=== PATIENT | male | born 1980 | race Caucasian/White ===

== ENCOUNTER 2020-04-02 16:25 | Inpatient (IN) ==
[2020-04-02] MEDS ORDERED: SODIUM CHLORIDE 0.9% 1000ML 2,000 ML IV SCH (17:00)
--- NOTE | 2020-04-02 17:13 | XRay Report ---
XR chest 1V portable HISTORY: 39 years-old Male weakness acute weakness COMPARISON: None TECHNIQUE: Portable upright AP view of the chest FINDINGS: Cardiomediastinal and hilar silhouettes are within normal limits. No pneumothorax, pleural effusion, airspace consolidation or overt pulmonary edema. Bones of the chest appear grossly intact. IMPRESSION: No acute process. ACT 112: Negative or not required by law. The above report was generated using voice recognition software. It may contain grammatical, syntax o r spelling errors. Electronically signed by: Kristopher Woodard M.D. 04/02/2020 5:11 PM
[2020-04-02 17:33] LABS: Basophils # (auto) 0.04 K/uL (0-0.2); Basophils % (auto) 0.4 %; Eosinophils # (auto) 0.14 K/uL (0-0.5); Eosinophils % (auto) 1.5 %; Immature Granulocytes # (auto) 0.07 K/uL (0.00-0.02); Immature Granulocytes % (auto) 0.7 %; Lymphocytes # (auto) 2.34 K/uL (1.2-3.4); Lymphocytes % (auto) 24.8 %; Mean Corpuscular Hemoglobin 29.5 pg (25-34); Mean Corpuscular Volume 79.7 fL (80-100); Mean Platelet Volume 10.9 fL (7.4-10.4); Monocytes # (auto) 0.51 K/uL (0.11-0.59); Monocytes % (auto) 5.4 %; Neutrophils # (auto) 6.32 K/uL (1.4-6.5); Neutrophils % (auto) 67.2 %; Platelet Count 223 K/uL (130-400); RDW Coefficient of Variation 12.9 % (11.5-14.5); RDW Standard Deviation 36.9 fL (36.4-46.3); Red Blood Count 5.77 M/uL (4.7-6.1); White Blood Count 9.42 K/uL (4.8-10.8)
[2020-04-02 17:41] LABS: Base Excess VBG 0.7 mEq/L; Oxygen Saturation VBG 92.5 %; pH VBG 7.45 (7.36-7.41)
[2020-04-02 18:22] LABS: Alanine Aminotransferase 79 U/L (12-78); Albumin Globulin Ratio 1.2 (0.9-2); Albumin Level 4.3 gm/dl (3.4-5.0); Alkaline Phosphatase 115 U/L (45-117); Aspartate Aminotransferase 27 U/L (15-37); BUN Creatinine Ratio 14.3 (10-20); Bilirubin,Total 1.6 mg/dl (0.2-1); Blood Urea Nitrogen 19 mg/dl (7-18); Calcium 9.9 mg/dl (8.5-10.1); Carbon Dioxide 22 mmol/L (21-32); Chloride 91 mmol/L (98-107); Creatinine Clr Calc Pharmacy 99.3 ml/min; Est GFR (African American) 77.9; Est GFR (Non-African American) 67.2; Globulin 3.7 gm/dl (2.5-4.0); Glucose 694 mg/dl (70-99); Magnesium 2.1 mg/dl (1.8-2.4); Phosphorus 3.3 mg/dl (2.5-4.9); Potassium 3.6 mmol/L (3.5-5.1); Sodium 127 mmol/L (136-145); Troponin I < 0.015 ng/ml (0-0.045)
[2020-04-02] MEDS ORDERED: POTASSIUM CHLORIDE CRTAB 20 MEQ TABCR PO STA (18:26)
[2020-04-02] MEDS ORDERED: NovoLIN-R INSULIN PER UNIT CHARGE IV STA (18:28)
[2020-04-02] MEDS ORDERED: SODIUM CHLORIDE 0.9% 1000ML 1,000 ML IV SCH (18:30)
[2020-04-02 18:36] LABS: Beta-Hydroxybutyrate 6.78 mg/dl (0.2-2.81)
[2020-04-02 18:51] LABS: Appearance Urine Clear (Clear); Bilirubin Urine Negative (Negative); Blood Urine Negative (Negative); Color Urine Yellow; Glucose Urine UA 3+ (Negative); Ketones Urine Trace (Negative); Leukocyte Esterase Urine Negative (Negative); Nitrite Urine Negative (Negative); Protein Urine Negative (Negative); Specific Gravity Urine 1.035 (1.000-1.030); Urobilinogen Urine Negative (Negative)
--- NOTE | 2020-04-02 19:02 | History & Physical Report ---
Date of Service April 02, 2020 Assessment & Plan (1) Hyperglycemia due to diabetes mellitus: This is a 39 M who has a significant PMH HTN, HLD, elevated LFT, obesity, and smokeless tobacco use who presents to ED 2/2 to overall feeling ill for the past 5 days. In ED found to be hyperglycemic with BSG 694. No evidence of infection. No prior history of T2DM, positive family history in mother. No evidence of overt DKA given normal pH, mild ketones in urine, elevated beta hydroxybutyric acid however trending in that direction if left untreated. After 2 L of IV fluid and 10 units of IV regular insulin BSG 423. Corrected serum sodium 137. Mildly elevated anion gap 14. Admit to PCU Start insulin drip, goal range 150-250 Consult glycemic pharmacist Every hour blood sugar IVF NS 150 cc/h +20 M EQ of KCl bmp now and q8h to monitor for hypokalemia consult extension educator (2) HTN (hypertension): Blood pressure elevated in ED 157/86 Patient overtly agitated given current situation Monitor BP, goal less than 130/80 as outpatient given diabetes Continue lisinopril and hydrochlorothiazide (3) HLD (hyperlipidemia): Currently not on any lipid-lowering medication Last lipid panel 01/2019 Obtain fasting lipid panel in a.m. (4) Obesity: BMI 38.9 encourage weight loss and lifestyle modifications (5) Tobacco abuse: smokeless tobacco encourage cessation (6) Elevated LFTs: Total bili 1.6, ALT 79 (previously elevated in epic 01/2019) No abdominal pain Repeat in a.m. and consider right upper quadrant ultrasound DVT prophylaxis: SCD/teds Disposition: Admit to PCU Follow-up: Current PCP is Dr. Manzano; however patient currently unhappy and will need to establish with another provider in office for close diabetic management Full code History of Present Illness Chief Complaint: Overall feeling ill for the past 5 days. Primary Care Provider: NO PCP This is a 39 M who has a significant PMH HTN, HLD, elevated LFT, obesity, and smokeless tobacco use who presents to ED 2/2 to overall feeling ill for the past 5 days. C/o polyuria, polydipsia, dizziness and dry mouth. 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 Over past few days he was researching symptoms and sounded like diabetes. He asked nurses to check glucose and it was over 600. He was referred to ED. He denies recent illness, f/c/s, syncope, chest pain, sob, cough, URI sx, hemoptysis, n/v/d, abdominal pain, dysuria, melena or hematochezia. His PCP was Dr. Manzano and he is not happy with his care there. Was last seen a few weeks ago and he was concerned about his blood pressure and losing weight. He felt his concerns weren't heard. Today in ED his bsg was 694 but no overt acidosis. Mild ketones in urine and elevation of beta hydroxybutyric acid of 6.78. He received 2 L of IV fluid in ED along with 10 units of IV regular insulin. BSG went from 694- 423. Allergies Allergy/AdvReac Type Severity Reaction Status Date / Time amoxicillin [From Augmentin] Allergy Rash Verified 04/02/20 17:27 clavulanic acid Allergy Rash Verified 04/02/20 17:27 [From Augmentin] Penicillins Allergy diarrhea, Verified 04/02/20 17:26 fever, hives Home Medications Medication Instructions Recorded Confirmed Type acetaminophen [Tylenol Extra 1,000 mg PO Q6H PRN 04/02/20 04/02/20 History Strength] cholecalciferol (vitamin D3) 25 mcg PO DAILY 04/02/20 04/02/20 History [Vitamin D3] hydrochlorothiazide 50 mg PO DAILY 04/02/20 04/02/20 History lisinopril 40 mg PO DAILY 04/02/20 04/02/20 History omega-3 fatty acids [Fish Oil] 1,000 mg PO DAILY 04/02/20 04/02/20 History Past Med/Surg History Medical History (Updated 04/02/20 @ 19:40 by Dulce Soto PA-C) Elevated LFTs HLD (hyperlipidemia) HTN (hypertension) Obesity Vitamin D deficiency Surgical History (Updated 04/02/20 @ 18:58 by Dulce Soto PA-C) History of femur fracture s/p surgical fixation age 8 Family History Mother Diabetes Hypertension Father Hypertension Brother Hypertension Social History (Updated 04/02/20 @ 19:00 by Dulce Soto PA-C) Smoking Status: Current every day smoker Tobacco Type: Smokeless Tobacco (Dip or Chew) Hx Alcohol Use: No Hx Substance Use: No Preferred Language: [place] marital status: Single Current Living Situation: Alone current occupational status: employed 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 Normal insp/exp effort, no accessory muscle use Cardiovascular: RRR, no murmur, no edema Vessels: no JVD or carotid bruit Chest: normal inspection of chest Abdomen: normal bowel sounds, soft, nontender, no hepatosplenomegaly Musculoskeletal: no cyanosis or clubbing, extremities motor strength 5/5 Skin: no rashes, warm and dry normal turgor Neurologic: PERRL, EOMI, accommodation nl, no face palsy, no dysarthria CN's II-XI intact bilaterally and moves all extremities Psychiatric: A+Ox3, euthymic affect : deferred Results & Data Results & Data ([facility]) Vital Signs (Past 12 Hours) Vital Signs Temp Pulse Pulse Resp BP BP Pulse Ox 04/02/20 18:44 87 20 157/86 H 98 04/02/20 18:24 98 04/02/20 17:01 89 20 137/89 98 04/02/20 16:34 36.8 C 111 H 18 156/91 H 96 Diagnostic Findings CXR: IMPRESSION: No acute process. Medications Administered Sodium Chloride (Nss 1000ml) 1,000 mls @ 150 mls/hr IV .Q6H40M BAILEY Stop: 05/02/20 18:29 Last Admin: 04/02/20 18:39 Dose: 150 mls/hr Documented by: [id number] Discontinued Medications Sodium Chloride (Nss 1000ml) 2,000 mls @ 999 mls/hr IV .Q2H1M BAILEY Stop: 04/02/20 19:00 Last Admin: 04/02/20 17:40 Dose: 999 mls/hr Documented by: [id number] Insulin Human Regular (Novolin-R Insulin Per Unit Charge) 10 units IV NOW STA Stop: 04/02/20 18:29 Last Admin: 04/02/20 18:37 Dose: 10 units Documented by: [id number] Cosigned by: [id number] Potassium Chloride (Potassium Chloride Crtab 20 Meq Tabcr) 40 meq PO NOW STA Stop: 04/02/20 18:27 Last Admin: 04/02/20 18:38 Dose: 40 meq Documented by: [id number] ECG Rate (beats per minute): 100 Rhythm: sinus tachycardia Findings: + prolonged QT (467) COVID-19 Results Results COVID-19 Adm Lab Results: RBC 5.77 M/uL (4.7-6.1) 04/02/20 WBC 9.42 K/uL (4.8-10.8) 04/02/20 Hgb 17.0 g/dL (14.0-18.0) 04/02/20 Hct 46.0 % (42-52) 04/02/20 Plt Count 223 K/uL (130-400) 04/02/20 Neutrophils (%) (Auto) 67.2 % 04/02/20 Lymphocytes (%) (Auto) 24.8 % 04/02/20 Monocytes # (Auto) 0.51 K/uL (0.11-0.59) 04/02/20 Eosinophils # (Auto) 0.14 K/uL (0-0.5) 04/02/20 Immature Granulocyte % (Auto) 0.7 % 04/02/20 Neutrophils # (Auto) 6.32 K/uL (1.4-6.5) 04/02/20 Lymphocytes # (Auto) 2.34 K/uL (1.2-3.4) 04/02/20 Monocytes # (Auto) 0.51 K/uL (0.11-0.59) 04/02/20 Eosinophils # (Auto) 0.14 K/uL (0-0.5) 04/02/20 Basophils # (Auto) 0.04 K/uL (0-0.2) 04/02/20 Immature Granulocyte # (Auto) 0.07 K/uL (0.00-0.02) H 04/02/20 Na 127 mmol/L (136-145) L 04/02/20 K 3.6 mmol/L (3.5-5.1) 04/02/20 Cl 91 mmol/L (98-107) L 04/02/20 CO2 22 mmol/L (21-32) 04/02/20 Anion Gap 14.0 (3-11) H 04/02/20 BUN 19 mg/dl (7-18) H 04/02/20 Creatinine 1.34 mg/dl (0.6-1.4) 04/02/20 BUN/Creatinine Ratio 14.3 (10-20) 04/02/20 Glucose Level 694 mg/dl (70-99) H* 04/02/20 Ca 9.9 mg/dl (8.5-10.1) 04/02/20 Phosphorus Level 3.3 mg/dl (2.5-4.9) 04/02/20 Total Bilirubin 1.6 mg/dl (0.2-1) H 04/02/20 AST/SGOT 27 U/L (15-37) 04/02/20 ALT/SGPT 79 U/L (12-78) H 04/02/20 Alkaline Phosphatase 115 U/L (45-117) 04/02/20 Total Protein 8.0 gm/dl (6.4-8.2) 04/02/20 Albumin 4.3 gm/dl (3.4-5.0) 04/02/20 Globulin 3.7 gm/dl (2.5-4.0) 04/02/20 Albumin/Globulin Ratio 1.2 (0.9-2) 04/02/20 Troponin I < 0.015 ng/ml (0-0.045) 04/02/20 SARS-CoV-2, RNA, NAAT NEGATIVE (NEGATIVE) 04/02/20 Chest X-Ray 04/02/20 Code Status & VTE Plan Code Status Full code VTE Prophylaxis Plan VTE Prophylaxis will be ordered: Yes Supervising Physician Co-Signing Physician Notes 39 M who has a significant PMH HTN, HLD, obesity who presents to ED due to overall feeling ill for the past 5 days History detailed above, notable for polyuria, polydipsia, feeling dehydrated and lightheaded. Also chews tobacco Physical exam notable for obesity Labs notable for hyperglycemia, elevated beta hydroxybutyrate, AGAP 14, elevated, K 3.6 -Hyperglycemia -New diagnosis of Diabetes mellitus Does have hyperglycemia, ketonemia but no acidosis. Likely in early stages of developing DKA Will get blood glucose better controlled with insulin drip Got 2L NSS bolus in ER. Hydrate. Continue NSS +KCl Monitor electrolytes Get A1c Provided basic DM education including lifestyle modification DM educator consult Will need supplies and more education prior to discharge Will need set up with a PCP on discharge Continue antihypertensive Other plans as detailed above
[2020-04-02] MEDS ORDERED: DKA GOAL RANGE 150-250 mg/dl ONE (19:23)
[2020-04-02] MEDS ORDERED: PHARMACY GLYCEMIC MGMT CONSULT STA (19:23)
[2020-04-02] MEDS ORDERED: NSS + 20MEQ KCL 20 MEQ/1,000 ML BAG IV SCH (19:30)
[2020-04-02] MEDS ORDERED: INSULIN REGULAR 250 UNITS in SODIUM CHLORIDE 0.9% 247.5 ML IV SCH ×2 (19:30→20:00)
[2020-04-02] MEDS ORDERED: MODERATE STRESS LEVEL ONE (19:42)
[2020-04-02] MEDS ORDERED: PHARMACY GLYCEMIC MGMT CONSULT PRN (19:54)
[2020-04-02 20:24] LABS: BUN Creatinine Ratio 13.6 (10-20); Calcium 8.7 mg/dl (8.5-10.1); Creatinine Clr Calc Pharmacy 115.7 ml/min; Est GFR (African American) 93.7; Est GFR (Non-African American) 80.8
--- NOTE | 2020-04-02 21:47 | Emergency Department Note ---
Impression & Plan Hyperglycemia due to diabetes mellitus, Obesity, Diabetes mellitus, new onset ED Provider Note NAME: CANDI SCHMID AGE: 39 SEX: M ARRIVES VIA: Walk-In INFORMANT: Patient, ED PROVIDER(S): Savita Carrasquillo MD CHIEF COMPLAINT: Illness, dizzy, high blood sugar PLAN: Disposition: Inpatient Condition: Fair Referral: Hospitalist MEDICAL DECISION MAKING:This pt was evaluated and appeared to be in no distress. IV access was obtained and lab work was drawn. Pt was placed on the cardiac exercise physiologist and noted to be in a ST at 111 bpm. IV NSS 2L was administered. Lab work reveals a glucose of 694, however pt did not appear to be severely acidotic. Electrolytes are reasonable with exception of Na at 127. Pt was given 10 U of IV regular insulin. Glucose was repeated at the bedside for 423. Case was d/w the hospitalist for further management. Pt is aware of the plan and agrees. Triage Nursing notes reviewed. Prior medical records reviewed. Vital Signs: reviewed and remarkable for mild tachycardia Differential diagnosis: Infection, dehydration, metabolic abnormality, hyperglycemia, electrolyte di sturbance, anemia, hypoxia, cardiac sources, intracerebral event, toxicologic, neurologic, as well as other pathologies. ER treatment provided: IV NSS IV regular insulin Diagnostics interpreted by me: ECG: NSR at 100 bpm, Qtc 461 Cardiac Monitoring: Pt was placed on the cardiac exercise physiologist and noted to be in a ST at 111 bpm. Inferior Q waves, normal ST segments. no PVC, no PAC. Laboratory studies: See below Imaging studies: XR chest 1V portable HISTORY: 39 years-old Male weakness acute weakness COMPARISON: None TECHNIQUE: Portable upright AP view of the chest FINDINGS: Cardiomediastinal and hilar silhouettes are within normal limits. No pneumothorax, pleural effusion, airspace consolidation or overt pulmonary edema. Bones of the chest appear grossly intact. IMPRESSION: No acute process. ACT 112: Negative or not required by law. The above report was generated using voice recognition software. It may contain grammatical, syntax or spelling errors. Electronically signed by: Kristopher Woodard M.D. 04/02/2020 5:11 PM Dictated: 04/02/201709Transcribed: 04/02/201709 Consultation(s): hospitalist HPI: 39/M arrives for evaluation of dizziness, nausea. 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 He was in the hospital with a prisoner/patient and began to feel ill. Nursing checked his glucose which read 'HIGH.' Pt was sent to the ED for evaluation. Pt has not been feeling well over the last week. He states he has been drinking and urinating much more frequently, now waking up to urinate. He has had some nausea, but no vomiting. He denies fever, chills, CP, SOB. Denies recent fever, cough. ROS: See above HPI for pertinent positives & negatives. A total of 10 systems reviewed and were otherwise negative. PAST MEDICAL HISTORY:See Below PAST SURGICAL HISTORY:See Below FAMILY HISTORY:See Below SOCIAL HISTORY:See Below HOME MEDICATIONS:See Below ALLERGIES:See Below PHYSICAL EXAMINATION: Vital signs reviewed. General: Well-appearing 39 yo male, in no significant distress. HEENT: No scleral icterus, PERRLA, neck supple. Atraumatic. Cardiovascular:slightly tachycardic but regular, no extra sounds. Pulmonary: Clear to auscultation bilaterally, normal work of breathing. Abdomen: Soft, obese, nontender, nondistended, positive bowel sounds. Musculoskeletal: Atraumatic, no peripheral edema. Neurologic: Patient awake alert and oriented x 3 Skin: Warm, dry, no rash Savita Carrasquillo MD Past Med/Surg History Medical History Elevated LFTs HLD (hyperlipidemia) HTN (hypertension) Obesity Vitamin D deficiency Surgical History History of femur fracture s/p surgical fixation age 8 Family History Mother Diabetes Hypertension Father Hypertension Brother Hypertension Social History Smoking Status: Never smoker Tobacco Type: Smokeless Tobacco (Dip or Chew) Do You Dip or Chew Tobacco: Yes; Hx Alcohol Use: No Hx Substance Use: No Preferred Language: Estonian Communication Ability: Effective Beliefs That Will Affect Care: None marital status: Single Current Living Situation: Alone current occupational status: employed 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 Other Information That Helps Us Care for You: No Feels Safe at Home: Yes Safety Concerns: Feels Safe At This Time Allergies Allergies Allergy/AdvReac Type Severity Reaction Status Date / Time amoxicillin [From Augmentin] Allergy Rash Verified 04/02/20 17:27 clavulanic acid Allergy Rash Verified 04/02/20 17:27 [From Augmentin] Penicillins Allergy diarrhea, Verified 04/02/20 17:26 fever, hives Home Meds Home Medications Medication Instructions Recorded Confirmed acetaminophen [Tylenol Extra 1,000 mg PO Q6H PRN 04/02/20 04/02/20 Strength] cholecalciferol (vitamin D3) 25 mcg PO DAILY 04/02/20 04/02/20 [Vitamin D3] hydrochlorothiazide 50 mg PO DAILY 04/02/20 04/02/20 lisinopril 40 mg PO DAILY 04/02/20 04/02/20 omega-3 fatty acids 1,000 mg PO DAILY 04/02/20 04/02/20 Previous Rx's Medication Instructions Recorded insulin glargine [Basaglar KwikPen 30 unit SUBCUT PM #15 ml 04/04/20 U-100 Insulin] metformin 500 mg PO BIDM #60 tab 04/04/20 nicotine [Nicoderm CQ] 21 mg TRANSDERMAL QAM #14 ea 04/04/20 pen needle, diabetic #50 ea 04/04/20 Results & Data (ED) Vital Signs Vital Signs - 24 hr 04/02/20 16:34 04/02/20 17:01 04/02/20 18:24 Temperature 36.8 C Temperature Source Temporal Artery Scan Pulse Rate 111 H Pulse Rate [Apical] 89 Pulse Rhythm [Apical] Regular Pulse Strength [Apical] Normal Respiratory Rate 18 20 Respiratory Effort / Characteristics Non-Labored Spontaneous Non-Labored Spontaneous Respiratory Depth Normal Normal Respiratory Pattern Regular Blood Pressure 156/91 H Blood Pressure [Left Arm] 137/89 Blood Pressure Mean 112 Blood Pressure Mean [Left Arm] 105 Blood Pressure Position Sitting Blood Pressure Position [Left Arm] Sitting Pulse Oximetry 96 98 98 Oxygen Delivery Method Room Air Room Air Room Air Sepsis Recent Fever Within 48 Hours No Sepsis New/Unexplained Change in Mental Status N/A Sepsis Action Taken by Nursing No Action Required 04/02/20 18:44 Temperature Temperature Source Pulse Rate Pulse Rate [Apical] 87 Pulse Rhythm [Apical] Regular Pulse Strength [Apical] Normal Respiratory Rate 20 Respiratory Effort / Characteristics Non-Labored Spontaneous Respiratory Depth Normal Respiratory Pattern Regular Blood Pressure Blood Pressure [Left Arm] 157/86 H Blood Pressure Mean Blood Pressure Mean [Left Arm] 109 Blood Pressure Position Blood Pressure Position [Left Arm] Sitting Pulse Oximetry 98 Oxygen Delivery Method Room Air Sepsis Recent Fever Within 48 Hours Sepsis New/Unexplained Change in Mental Status Sepsis Action Taken by [facility] Medications Current Medication List: was personally reviewed by me Laboratory Data Attestation: I reviewed the patient's lab results. Result diagrams: 04/03/20 02:08 04/04/20 07:40 Lab Results 04/02/20 04/02/20 04/02/20 Range/Units 16:35 17:11 17:11 WBC 9.42 (4.8-10.8) K/uL RBC 5.77 (4.7-6.1) M/uL Hgb 17.0 (14.0-18.0) g/dL Hct 46.0 (42-52) % MCV 79.7 L (80-100) fL MCH 29.5 (25-34) pg MCHC 37.0 H (32-36) g/dL RDW Std Deviation 36.9 (36.4-46.3) fL RDW Coeff of Jose 12.9 (11.5-14.5) % Plt Count 223 (130-400) K/uL MPV 10.9 H (7.4-10.4) fL Immature Gran % (Auto) 0.7 % Neut % (Auto) 67.2 % Lymph % (Auto) 24.8 % Coke % (Auto) 5.4 % Eos % (Auto) 1.5 % Baso % (Auto) 0.4 % Neut # (Auto) 6.32 (1.4-6.5) K/uL Lymph # (Auto) 2.34 (1.2-3.4) K/uL Coke # (Auto) 0.51 (0.11-0.59) K/uL Eos # (Auto) 0.14 (0-0.5) K/uL Baso # (Auto) 0.04 (0-0.2) K/uL Immature Gran # (Auto) 0.07 H (0.00-0.02) K/uL VBG pH (7.36-7.41) VBG pCO2 (38-50) mmHg VBG pO2 mmHg VBG HCO3 mmol/L VBG O2 Saturation % VBG Base Excess mEq/L Barometric Pressure mm/Hg Sodium 127 L (136-145) mmol/L Potassium 3.6 (3.5-5.1) mmol/L Chloride 91 L (98-107) mmol/L Carbon Dioxide 22 (21-32) mmol/L Anion Gap 14.0 H (3-11) BUN 19 H (7-18) mg/dl Creatinine 1.34 (0.6-1.4) mg/dl Est Cr Clr Drug Dosing 99.3 ml/min Est GFR ( Amer) 77.9 Est GFR (Non-Af Amer) 67.2 BUN/Creatinine Ratio 14.3 (10-20) Glucose 694 H* (70-99) mg/dl POC Glucose > 600 H* (70-99) mg/dl Estimat Average Glucose mg/dl Hemoglobin A1c (4.5-5.6) % Calcium 9.9 (8.5-10.1) mg/dl Phosphorus 3.3 (2.5-4.9) mg/dl Magnesium 2.1 (1.8-2.4) mg/dl Total Bilirubin 1.6 H (0.2-1) mg/dl AST 27 (15-37) U/L ALT 79 H (12-78) U/L Alkaline Phosphatase 115 (45-117) U/L Troponin I < 0.015 (0-0.045) ng/ml Total Protein 8.0 (6.4-8.2) gm/dl Albumin 4.3 (3.4-5.0) gm/dl Globulin 3.7 (2.5-4.0) gm/dl Albumin/Globulin Ratio 1.2 (0.9-2) Triglycerides (0-150) mg/dl Cholesterol (0-200) mg/dl LDL Cholesterol, Calc mg/dl VLDL Cholesterol, Calc mg/dl HDL Cholesterol mg/dl Cholesterol/HDL Ratio Beta-Hydroxybutyric Acd 6.78 H (0.2-2.81) mg/dl TSH 1.760 (0.300-4.500) uIu/ml Specimen Hemolysis Urine Color Urine Appearance (Clear) Urine pH (4.5-7.5) Ur Specific Robards (1.000-1.030) Urine Protein (Negative) Urine Glucose (UA) (Negative) Urine Ketones (Negative) Urine Blood (Negative) Urine Nitrite (Negative) Urine Bilirubin (Negative) Urine Urobilinogen (Negative) Ur Leukocyte Esterase (Negative) COVID-19 Eval Order SARS-CoV-2, RNA, NAAT (NEGATIVE) 04/02/20 04/02/20 04/02/20 Range/Units 17:11 17:20 19:13 WBC (4.8-10.8) K/uL RBC (4.7-6.1) M/uL Hgb (14.0-18.0) g/dL Hct (42-52) % MCV (80-100) fL MCH (25-34) pg MCHC (32-36) g/dL RDW Std Deviation (36.4-46.3) fL RDW Coeff of Jose (11.5-14.5) % Plt Count (130-400) K/uL MPV (7.4-10.4) fL Immature Gran % (Auto) % Neut % (Auto) % Lymph % (Auto) % Coke % (Auto) % Eos % (Auto) % Baso % (Auto) % Neut # (Auto) (1.4-6.5) K/uL Lymph # (Auto) (1.2-3.4) K/uL Coke # (Auto) (0.11-0.59) K/uL Eos # (Auto) (0-0.5) K/uL Baso # (Auto) (0-0.2) K/uL Immature Gran # (Auto) (0.00-0.02) K/uL VBG pH 7.45 H (7.36-7.41) VBG pCO2 36 L (38-50) mmHg VBG pO2 63 mmHg VBG HCO3 24 mmol/L VBG O2 Saturation 92.5 % VBG Base Excess 0.7 mEq/L Barometric Pressure 721.4 mm/Hg Sodium (136-145) mmol/L Potassium (3.5-5.1) mmol/L Chloride (98-107) mmol/L Carbon Dioxide (21-32) mmol/L Anion Gap (3-11) BUN (7-18) mg/dl Creatinine (0.6-1.4) mg/dl Est Cr Clr Drug Dosing ml/min Est GFR ( Amer) Est GFR (Non-Af Amer) BUN/Creatinine Ratio (10-20) Glucose (70-99) mg/dl POC Glucose 423 H* (70-99) mg/dl Estimat Average Glucose mg/dl Hemoglobin A1c (4.5-5.6) % Calcium (8.5-10.1) mg/dl Phosphorus (2.5-4.9) mg/dl Magnesium (1.8-2.4) mg/dl Total Bilirubin (0.2-1) mg/dl AST (15-37) U/L ALT (12-78) U/L Alkaline Phosphatase (45-117) U/L Troponin I (0-0.045) ng/ml Total Protein (6.4-8.2) gm/dl Albumin (3.4-5.0) gm/dl Globulin (2.5-4.0) gm/dl Albumin/Globulin Ratio (0.9-2) Triglycerides (0-150) mg/dl Cholesterol (0-200) mg/dl LDL Cholesterol, Calc mg/dl VLDL Cholesterol, Calc mg/dl HDL Cholesterol mg/dl Cholesterol/HDL Ratio Beta-Hydroxybutyric Acd (0.2-2.81) mg/dl TSH (0.300-4.500) uIu/ml Specimen Hemolysis Urine Color Yellow Urine Appearance Clear (Clear) Urine pH 5.0 (4.5-7.5) Ur Specific Robards 1.035 H (1.000-1.030) Urine Protein Negative (Negative) Urine Glucose (UA) 3+ H (Negative) Urine Ketones Trace H (Negative) Urine Blood Negative (Negative) Urine Nitrite Negative (Negative) Urine Bilirubin Negative (Negative) Urine Urobilinogen Negative (Negative) Ur Leukocyte Esterase Negative (Negative) COVID-19 Eval Order SARS-CoV-2, RNA, NAAT (NEGATIVE) 04/02/20 04/02/20 04/02/20 Range/Units 19:16 19:16 19:46 WBC (4.8-10.8) K/uL RBC (4.7-6.1) M/uL Hgb (14.0-18.0) g/dL Hct (42-52) % MCV (80-100) fL MCH (25-34) pg MCHC (32-36) g/dL RDW Std Deviation (36.4-46.3) fL RDW Coeff of Jose (11.5-14.5) % Plt Count (130-400) K/uL MPV (7.4-10.4) fL Immature Gran % (Auto) % Neut % (Auto) % Lymph % (Auto) % Coke % (Auto) % Eos % (Auto) % Baso % (Auto) % Neut # (Auto) (1.4-6.5) K/uL Lymph # (Auto) (1.2-3.4) K/uL Coke # (Auto) (0.11-0.59) K/uL Eos # (Auto) (0-0.5) K/uL Baso # (Auto) (0-0.2) K/uL Immature Gran # (Auto) (0.00-0.02) K/uL VBG pH (7.36-7.41) VBG pCO2 (38-50) mmHg VBG pO2 mmHg VBG HCO3 mmol/L VBG O2 Saturation % VBG Base Excess mEq/L Barometric Pressure mm/Hg Sodium 133 L (136-145) mmol/L Potassium (3.5-5.1) mmol/L Chloride 98 (98-107) mmol/L Carbon Dioxide 28 (21-32) mmol/L Anion Gap 7.0 (3-11) BUN 16 (7-18) mg/dl Creatinine 1.15 (0.6-1.4) mg/dl Est Cr Clr Drug Dosing 115.7 ml/min Est GFR ( Amer) 93.7 Est GFR (Non-Af Amer) 80.8 BUN/Creatinine Ratio 13.6 (10-20) Glucose 382 H* (70-99) mg/dl POC Glucose (70-99) mg/dl Estimat Average Glucose mg/dl Hemoglobin A1c (4.5-5.6) % Calcium 8.7 (8.5-10.1) mg/dl Phosphorus (2.5-4.9) mg/dl Magnesium (1.8-2.4) mg/dl Total Bilirubin (0.2-1) mg/dl AST (15-37) U/L ALT (12-78) U/L Alkaline Phosphatase (45-117) U/L Troponin I (0-0.045) ng/ml Total Protein (6.4-8.2) gm/dl Albumin (3.4-5.0) gm/dl Globulin (2.5-4.0) gm/dl Albumin/Globulin Ratio (0.9-2) Triglycerides (0-150) mg/dl Cholesterol (0-200) mg/dl LDL Cholesterol, Calc mg/dl VLDL Cholesterol, Calc mg/dl HDL Cholesterol mg/dl Cholesterol/HDL Ratio Beta-Hydroxybutyric Acd (0.2-2.81) mg/dl TSH (0.300-4.500) uIu/ml Specimen Hemolysis Urine Color Urine Appearance (Clear) Urine pH (4.5-7.5) Ur Specific Robards (1.000-1.030) Urine Protein (Negative) Urine Glucose (UA) (Negative) Urine Ketones (Negative) Urine Blood (Negative) Urine Nitrite (Negative) Urine Bilirubin (Negative) Urine Urobilinogen (Negative) Ur Leukocyte Esterase (Negative) COVID-19 Eval Order Covid19 IDNow [facility] SARS-CoV-2, RNA, NAAT NEGATIVE (NEGATIVE) 04/02/20 04/02/20 04/02/20 Range/Units 20:24 21:17 21:37 WBC (4.8-10.8) K/uL RBC (4.7-6.1) M/uL Hgb (14.0-18.0) g/dL Hct (42-52) % MCV (80-100) fL MCH (25-34) pg MCHC (32-36) g/dL RDW Std Deviation (36.4-46.3) fL RDW Coeff of Jose (11.5-14.5) % Plt Count (130-400) K/uL MPV (7.4-10.4) fL Immature Gran % (Auto) % Neut % (Auto) % Lymph % (Auto) % Coke % (Auto) % Eos % (Auto) % Baso % (Auto) % Neut # (Auto) (1.4-6.5) K/uL Lymph # (Auto) (1.2-3.4) K/uL Coke # (Auto) (0.11-0.59) K/uL Eos # (Auto) (0-0.5) K/uL Baso # (Auto) (0-0.2) K/uL Immature Gran # (Auto) (0.00-0.02) K/uL VBG pH (7.36-7.41) VBG pCO2 (38-50) mmHg VBG pO2 mmHg VBG HCO3 mmol/L VBG O2 Saturation % VBG Base Excess mEq/L Barometric Pressure mm/Hg Sodium (136-145) mmol/L Potassium Cancelled (3.5-5.1) mmol/L Chloride (98-107) mmol/L Carbon Dioxide (21-32) mmol/L Anion Gap (3-11) BUN (7-18) mg/dl Creatinine (0.6-1.4) mg/dl Est Cr Clr Drug Dosing ml/min Est GFR ( Amer) Est GFR (Non-Af Amer) BUN/Creatinine Ratio (10-20) Glucose (70-99) mg/dl POC Glucose 377 H* 362 H* (70-99) mg/dl Estimat Average Glucose mg/dl Hemoglobin A1c (4.5-5.6) % Calcium (8.5-10.1) mg/dl Phosphorus (2.5-4.9) mg/dl Magnesium (1.8-2.4) mg/dl Total Bilirubin (0.2-1) mg/dl AST (15-37) U/L ALT (12-78) U/L Alkaline Phosphatase (45-117) U/L Troponin I (0-0.045) ng/ml Total Protein (6.4-8.2) gm/dl Albumin (3.4-5.0) gm/dl Globulin (2.5-4.0) gm/dl Albumin/Globulin Ratio (0.9-2) Triglycerides (0-150) mg/dl Cholesterol (0-200) mg/dl LDL Cholesterol, Calc mg/dl VLDL Cholesterol, Calc mg/dl HDL Cholesterol mg/dl Cholesterol/HDL Ratio Beta-Hydroxybutyric Acd Cancelled (0.2-2.81) mg/dl TSH (0.300-4.500) uIu/ml Specimen Hemolysis Urine Color Urine Appearance (Clear) Urine pH (4.5-7.5) Ur Specific Robards (1.000-1.030) Urine Protein (Negative) Urine Glucose (UA) (Negative) Urine Ketones (Negative) Urine Blood (Negative) Urine Nitrite (Negative) Urine Bilirubin (Negative) Urine Urobilinogen (Negative) Ur Leukocyte Esterase (Negative) COVID-19 Eval Order SARS-CoV-2, RNA, NAAT (NEGATIVE) 04/02/20 04/02/20 04/02/20 Range/Units 21:49 22:48 23:47 WBC (4.8-10.8) K/uL RBC (4.7-6.1) M/uL Hgb (14.0-18.0) g/dL Hct (42-52) % MCV (80-100) fL MCH (25-34) pg MCHC (32-36) g/dL RDW Std Deviation (36.4-46.3) fL RDW Coeff of Jose (11.5-14.5) % Plt Count (130-400) K/uL MPV (7.4-10.4) fL Immature Gran % (Auto) % Neut % (Auto) % Lymph % (Auto) % Coke % (Auto) % Eos % (Auto) % Baso % (Auto) % Neut # (Auto) (1.4-6.5) K/uL Lymph # (Auto) (1.2-3.4) K/uL Coke # (Auto) (0.11-0.59) K/uL Eos # (Auto) (0-0.5) K/uL Baso # (Auto) (0-0.2) K/uL Immature Gran # (Auto) (0.00-0.02) K/uL VBG pH (7.36-7.41) VBG pCO2 (38-50) mmHg VBG pO2 mmHg VBG HCO3 mmol/L VBG O2 Saturation % VBG Base Excess mEq/L Barometric Pressure mm/Hg Sodium (136-145) mmol/L Potassium 3.4 L (3.5-5.1) mmol/L Chloride (98-107) mmol/L Carbon Dioxide (21-32) mmol/L Anion Gap (3-11) BUN (7-18) mg/dl Creatinine (0.6-1.4) mg/dl Est Cr Clr Drug Dosing ml/min Est GFR ( Amer) Est GFR (Non-Af Amer) BUN/Creatinine Ratio (10-20) Glucose (70-99) mg/dl POC Glucose 322 H* 263 H (70-99) mg/dl Estimat Average Glucose mg/dl Hemoglobin A1c (4.5-5.6) % Calcium (8.5-10.1) mg/dl Phosphorus (2.5-4.9) mg/dl Magnesium (1.8-2.4) mg/dl Total Bilirubin (0.2-1) mg/dl AST (15-37) U/L ALT (12-78) U/L Alkaline Phosphatase (45-117) U/L Troponin I (0-0.045) ng/ml Total Protein (6.4-8.2) gm/dl Albumin (3.4-5.0) gm/dl Globulin (2.5-4.0) gm/dl Albumin/Globulin Ratio (0.9-2) Triglycerides (0-150) mg/dl Cholesterol (0-200) mg/dl LDL Cholesterol, Calc mg/dl VLDL Cholesterol, Calc mg/dl HDL Cholesterol mg/dl Cholesterol/HDL Ratio Beta-Hydroxybutyric Acd 5.62 H (0.2-2.81) mg/dl TSH (0.300-4.500) uIu/ml Specimen Hemolysis Urine Color Urine Appearance (Clear) Urine pH (4.5-7.5) Ur Specific Robards (1.000-1.030) Urine Protein (Negative) Urine Glucose (UA) (Negative) Urine Ketones (Negative) Urine Blood (Negative) Urine Nitrite (Negative) Urine Bilirubin (Negative) Urine Urobilinogen (Negative) Ur Leukocyte Esterase (Negative) COVID-19 Eval Order SARS-CoV-2, RNA, NAAT (NEGATIVE) 04/03/20 04/03/20 04/03/20 Range/Units 00:38 01:47 02:08 WBC (4.8-10.8) K/uL RBC (4.7-6.1) M/uL Hgb (14.0-18.0) g/dL Hct (42-52) % MCV (80-100) fL MCH (25-34) pg MCHC (32-36) g/dL RDW Std Deviation (36.4-46.3) fL RDW Coeff of Jose (11.5-14.5) % Plt Count (130-400) K/uL MPV (7.4-10.4) fL Immature Gran % (Auto) % Neut % (Auto) % Lymph % (Auto) % Coke % (Auto) % Eos % (Auto) % Baso % (Auto) % Neut # (Auto) (1.4-6.5) K/uL Lymph # (Auto) (1.2-3.4) K/uL Coke # (Auto) (0.11-0.59) K/uL Eos # (Auto) (0-0.5) K/uL Baso # (Auto) (0-0.2) K/uL Immature Gran # (Auto) (0.00-0.02) K/uL VBG pH (7.36-7.41) VBG pCO2 (38-50) mmHg VBG pO2 mmHg VBG HCO3 mmol/L VBG O2 Saturation % VBG Base Excess mEq/L Barometric Pressure mm/Hg Sodium 137 (136-145) mmol/L Potassium 3.1 L (3.5-5.1) mmol/L Chloride 103 (98-107) mmol/L Carbon Dioxide 30 (21-32) mmol/L Anion Gap 4.0 (3-11) BUN 13 (7-18) mg/dl Creatinine 0.95 (0.6-1.4) mg/dl Est Cr Clr Drug Dosing 140.0 ml/min Est GFR ( Amer) 118.0 Est GFR (Non-Af Amer) 101.9 BUN/Creatinine Ratio 13.5 (10-20) Glucose 156 H (70-99) mg/dl POC Glucose 224 H 188 H (70-99) mg/dl Estimat Average Glucose mg/dl Hemoglobin A1c (4.5-5.6) % Calcium 8.5 (8.5-10.1) mg/dl Phosphorus (2.5-4.9) mg/dl Magnesium (1.8-2.4) mg/dl Total Bilirubin (0.2-1) mg/dl AST (15-37) U/L ALT (12-78) U/L Alkaline Phosphatase (45-117) U/L Troponin I (0-0.045) ng/ml Total Protein (6.4-8.2) gm/dl Albumin (3.4-5.0) gm/dl Globulin (2.5-4.0) gm/dl Albumin/Globulin Ratio (0.9-2) Triglycerides (0-150) mg/dl Cholesterol (0-200) mg/dl LDL Cholesterol, Calc mg/dl VLDL Cholesterol, Calc mg/dl HDL Cholesterol mg/dl Cholesterol/HDL Ratio Beta-Hydroxybutyric Acd (0.2-2.81) mg/dl TSH (0.300-4.500) uIu/ml Specimen Hemolysis Urine Color Urine Appearance (Clear) Urine pH (4.5-7.5) Ur Specific Robards (1.000-1.030) Urine Protein (Negative) Urine Glucose (UA) (Negative) Urine Ketones (Negative) Urine Blood (Negative) Urine Nitrite (Negative) Urine Bilirubin (Negative) Urine Urobilinogen (Negative) Ur Leukocyte Esterase (Negative) COVID-19 Eval Order SARS-CoV-2, RNA, NAAT (NEGATIVE) 04/03/20 04/03/20 04/03/20 Range/Units 02:08 02:08 02:08 WBC 8.16 (4.8-10.8) K/uL RBC 5.28 (4.7-6.1) M/uL Hgb 15.2 (14.0-18.0) g/dL Hct 42.0 (42-52) % MCV 79.5 L (80-100) fL MCH 28.8 (25-34) pg MCHC 36.2 H (32-36) g/dL RDW Std Deviation 37.4 (36.4-46.3) fL RDW Coeff of Jose 13.1 (11.5-14.5) % Plt Count 220 (130-400) K/uL MPV 10.3 (7.4-10.4) fL Immature Gran % (Auto) 0.9 % Neut % (Auto) 57.0 % Lymph % (Auto) 32.5 % Coke % (Auto) 6.0 % Eos % (Auto) 3.1 % Baso % (Auto) 0.5 % Neut # (Auto) 4.66 (1.4-6.5) K/uL Lymph # (Auto) 2.65 (1.2-3.4) K/uL Coke # (Auto) 0.49 (0.11-0.59) K/uL Eos # (Auto) 0.25 (0-0.5) K/uL Baso # (Auto) 0.04 (0-0.2) K/uL Immature Gran # (Auto) 0.07 H (0.00-0.02) K/uL VBG pH (7.36-7.41) VBG pCO2 (38-50) mmHg VBG pO2 mmHg VBG HCO3 mmol/L VBG O2 Saturation % VBG Base Excess mEq/L Barometric Pressure mm/Hg Sodium 137 (136-145) mmol/L Potassium 3.2 L (3.5-5.1) mmol/L Chloride 103 (98-107) mmol/L Carbon Dioxide 30 (21-32) mmol/L Anion Gap 4.0 (3-11) BUN 12 (7-18) mg/dl Creatinine 0.98 (0.6-1.4) mg/dl Est Cr Clr Drug Dosing 135.8 ml/min Est GFR ( Amer) 113.7 Est GFR (Non-Af Amer) 98.1 BUN/Creatinine Ratio 12.8 (10-20) Glucose 153 H (70-99) mg/dl POC Glucose (70-99) mg/dl Estimat Average Glucose 286 mg/dl Hemoglobin A1c 11.6 H (4.5-5.6) % Calcium 8.6 (8.5-10.1) mg/dl Phosphorus (2.5-4.9) mg/dl Magnesium 2.1 (1.8-2.4) mg/dl Total Bilirubin 1.4 H (0.2-1) mg/dl AST 19 (15-37) U/L ALT 63 (12-78) U/L Alkaline Phosphatase 92 (45-117) U/L Troponin I (0-0.045) ng/ml Total Protein 6.9 (6.4-8.2) gm/dl Albumin 3.8 (3.4-5.0) gm/dl Globulin 3.1 (2.5-4.0) gm/dl Albumin/Globulin Ratio 1.2 (0.9-2) Triglycerides 802 H (0-150) mg/dl Cholesterol 132 (0-200) mg/dl LDL Cholesterol, Calc mg/dl VLDL Cholesterol, Calc mg/dl HDL Cholesterol 22 mg/dl Cholesterol/HDL Ratio 6 Beta-Hydroxybutyric Acd (0.2-2.81) mg/dl TSH (0.300-4.500) uIu/ml Specimen Hemolysis Urine Color Urine Appearance (Clear) Urine pH (4.5-7.5) Ur Specific Robards (1.000-1.030) Urine Protein (Negative) Urine Glucose (UA) (Negative) Urine Ketones (Negative) Urine Blood (Negative) Urine Nitrite (Negative) Urine Bilirubin (Negative) Urine Urobilinogen (Negative) Ur Leukocyte Esterase (Negative) COVID-19 Eval Order SARS-CoV-2, RNA, NAAT (NEGATIVE) 04/03/20 04/03/20 04/03/20 Range/Units 03:41 05:48 07:29 WBC (4.8-10.8) K/uL RBC (4.7-6.1) M/uL Hgb (14.0-18.0) g/dL Hct (42-52) % MCV (80-100) fL MCH (25-34) pg MCHC (32-36) g/dL RDW Std Deviation (36.4-46.3) fL RDW Coeff of Jose (11.5-14.5) % Plt Count (130-400) K/uL MPV (7.4-10.4) fL Immature Gran % (Auto) % Neut % (Auto) % Lymph % (Auto) % Coke % (Auto) % Eos % (Auto) % Baso % (Auto) % Neut # (Auto) (1.4-6.5) K/uL Lymph # (Auto) (1.2-3.4) K/uL Coke # (Auto) (0.11-0.59) K/uL Eos # (Auto) (0-0.5) K/uL Baso # (Auto) (0-0.2) K/uL Immature Gran # (Auto) (0.00-0.02) K/uL VBG pH (7.36-7.41) VBG pCO2 (38-50) mmHg VBG pO2 mmHg VBG HCO3 mmol/L VBG O2 Saturation % VBG Base Excess mEq/L Barometric Pressure mm/Hg Sodium (136-145) mmol/L Potassium (3.5-5.1) mmol/L Chloride (98-107) mmol/L Carbon Dioxide (21-32) mmol/L Anion Gap (3-11) BUN (7-18) mg/dl Creatinine (0.6-1.4) mg/dl Est Cr Clr Drug Dosing ml/min Est GFR ( Amer) Est GFR (Non-Af Amer) BUN/Creatinine Ratio (10-20) Glucose (70-99) mg/dl POC Glucose 167 H 176 H 163 H (70-99) mg/dl Estimat Average Glucose mg/dl Hemoglobin A1c (4.5-5.6) % Calcium (8.5-10.1) mg/dl Phosphorus (2.5-4.9) mg/dl Magnesium (1.8-2.4) mg/dl Total Bilirubin (0.2-1) mg/dl AST (15-37) U/L ALT (12-78) U/L Alkaline Phosphatase (45-117) U/L Troponin I (0-0.045) ng/ml Total Protein (6.4-8.2) gm/dl Albumin (3.4-5.0) gm/dl Globulin (2.5-4.0) gm/dl Albumin/Globulin Ratio (0.9-2) Triglycerides (0-150) mg/dl Cholesterol (0-200) mg/dl LDL Cholesterol, Calc mg/dl VLDL Cholesterol, Calc mg/dl HDL Cholesterol mg/dl Cholesterol/HDL Ratio Beta-Hydroxybutyric Acd (0.2-2.81) mg/dl TSH (0.300-4.500) uIu/ml Specimen Hemolysis Urine Color Urine Appearance (Clear) Urine pH (4.5-7.5) Ur Specific Robards (1.000-1.030) Urine Protein (Negative) Urine Glucose (UA) (Negative) Urine Ketones (Negative) Urine Blood (Negative) Urine Nitrite (Negative) Urine Bilirubin (Negative) Urine Urobilinogen (Negative) Ur Leukocyte Esterase (Negative) COVID-19 Eval Order SARS-CoV-2, RNA, NAAT (NEGATIVE) Administered Medications Discontinued Medications Acetaminophen (Acetaminophen 325 Mg Tab) 650 mg PO Q4H PRN PRN Reason: Pain or Fever Stop: 05/02/20 22:02 Last Admin: 04/03/20 01:58 Dose: 650 mg Documented by: [id number] Fish Oil ([place]-3 (Purified Fish Oil) 1 Gm Cap) 1 gm PO DAILY [facility] Stop: 05/03/20 08:59 Last Admin: 04/04/20 09:00 Dose: 1 gm Documented by: [id number] Admin: 04/03/20 08:20 Dose: 1 gm Documented by: [id number] Hydrochlorothiazide (Hydrochlorothiazide 25 Mg Tab) 50 mg PO DAILY [facility] Stop: 05/03/20 08:59 Last Admin: 04/04/20 09:01 Dose: 50 mg Documented by: [id number] Admin: 04/03/20 08:19 Dose: 50 mg Documented by: [id number] Sodium Chloride (Nss 1000ml) 2,000 mls @ 999 mls/hr IV .Q2H1M [facility] Stop: 04/02/20 19:00 Last Infusion: 04/02/20 20:17 Dose: 0 mls/hr Documented by: [id number] Admin: 04/02/20 17:40 Dose: 999 mls/hr Documented by: [id number] Sodium Chloride (Nss 1000ml) 1,000 mls @ 150 mls/hr IV .Q6H40M [facility] Stop: 05/02/20 18:29 Last Infusion: 04/02/20 20:12 Dose: 0 mls/hr Documented by: [id number] Admin: 04/02/20 18:39 Dose: 150 mls/hr Documented by: [id number] Potassium Chloride/Sodium Chloride (Normal Saline W/20 Meq Kcl) 20 meq in 1,000 mls @ 150 mls/hr IV .Q6H40M [facility] Stop: 05/02/20 19:29 Last Infusion: 04/03/20 02:25 Dose: 0 mls/hr Documented by: [id number] Admin: 04/02/20 20:12 Dose: 150 mls/hr Documented by: [id number] Insulin Human Regular 250 (units/ Sodium Chloride) 250 mls @ 6.6 mls/hr IV .Q24H [facility]; Protocol Stop: 05/02/20 19:59 Last Titration: 04/03/20 12:35 Dose: 0 units/hr, 0 mls/hr Documented by: [id number] Cosigned by: [id number] Titration: 04/03/20 12:00 Dose: 7.9 units/hr, 7.9 mls/hr Documented by: [id number] Cosigned by: [id number] Titration: 04/03/20 10:24 Dose: 7.9 units/hr, 7.9 mls/hr Documented by: [id number] Cosigned by: [id number] Titration: 04/03/20 08:03 Dose: 6.6 units/hr, 6.6 mls/hr Documented by: [id number] Cosigned by: [id number] Titration: 04/03/20 05:52 Dose: 6.6 units/hr, 6.6 mls/hr Documented by: [id number] Cosigned by: [id number] Titration: 04/03/20 03:45 Dose: 6.6 units/hr, 6.6 mls/hr Documented by: [id number] Cosigned by: [id number] Titration: 04/03/20 01:50 Dose: 6.6 units/hr, 6.6 mls/hr Documented by: [id number] Cosigned by: [id number] Titration: 04/03/20 00:40 Dose: 6.6 units/hr, 6.6 mls/hr Documented by: [id number] Cosigned by: [id number] Titration: 04/02/20 23:52 Dose: 6.6 units/hr, 6.6 mls/hr Documented by: [id number] Cosigned by: [id number] Titration: 04/02/20 22:49 Dose: 6.6 units/hr, 6.6 mls/hr Documented by: [id number] Cosigned by: [id number] Titration: 04/02/20 21:58 Dose: 5.5 units/hr, 5.5 mls/hr Documented by: [id number] Cosigned by: [id number] Titration: 04/02/20 21:39 Dose: 5.5 units/hr, 5.5 mls/hr Documented by: [id number] Cosigned by: [id number] Admin: 04/02/20 20:37 Dose: 4.6 units/hr, 4.6 mls/hr Documented by: [id number] Cosigned by: [id number] Potassium Chloride/Dextrose/Sod Cl (D5w And 1/2nss + 20meq Kcl) 20 meq in 1,000 mls @ 150 mls/hr IV .Q6H40M [facility] Stop: 05/03/20 01:59 Last Infusion: 04/03/20 10:22 Dose: 0 mls/hr Documented by: [id number] Admin: 04/03/20 08:16 Dose: 150 mls/hr Documented by: [id number] Infusion: 04/03/20 08:16 Dose: 150 mls/hr Documented by: [id number] Admin: 04/03/20 02:25 Dose: 150 mls/hr Documented by: [id number] Ibuprofen (Ibuprofen 600 Mg Tab) 600 mg PO NOW STA Stop: 04/03/20 09:30 Last Admin: 04/03/20 11:52 Dose: 600 mg Documented by: [id number] Insulin Aspart (Insulin Aspart 100 Units/Ml 3 Ml Pen) 0 units SC ACHS [facility] Stop: 05/02/20 20:59 Last Admin: 04/03/20 08:18 Dose: 10 units Documented by: [id number] Cosigned by: [id number] Admin: 04/02/20 22:45 Dose: Not Given Documented by: [id number] Insulin Aspart (Insulin Aspart 100 Units/Ml 3 Ml Pen) 0 units SC ACHS [facility] Stop: 05/03/20 11:29 Last Admin: 04/04/20 12:35 Dose: 11 units Documented by: [id number] Cosigned by: [id number] Admin: 04/04/20 08:56 Dose: 13 units Documented by: [id number] Cosigned by: [id number] Admin: 04/03/20 21:37 Dose: 6 units Documented by: [id number] Cosigned by: [id number] Admin: 04/03/20 18:30 Dose: 6 units Documented by: [id number] Cosigned by: [id number] Admin: 04/03/20 11:53 Dose: 7 units Documented by: [id number] Cosigned by: [id number] Insulin Glargine (Insulin Glargine Solostar 100 Units/Ml 3 Ml Pen) 20 units SC HS ONE Stop: 04/02/20 22:04 Last Admin: 04/02/20 22:31 Dose: 20 units Documented by: [id number] Cosigned by: [id number] Insulin Glargine (Insulin Glargine Solostar 100 Units/Ml 3 Ml Pen) 20 units SC NOW ONE Stop: 04/03/20 08:01 Last Admin: 04/03/20 08:17 Dose: 20 units Documented by: [id number] Cosigned by: [id number] Insulin Glargine (Insulin Glargine Solostar 100 Units/Ml 3 Ml Pen) 15 units SC BID [facility] Stop: 05/03/20 20:59 Last Admin: 04/04/20 09:01 Dose: 15 units Documented by: [id number] Cosigned by: [id number] Admin: 04/03/20 21:37 Dose: 15 units Documented by: [id number] Cosigned by: [id number] Insulin Glargine (Insulin Glargine Solostar 100 Units/Ml 3 Ml Pen) 15 units SC ONE ONE Stop: 04/04/20 16:50 Last Admin: 04/04/20 17:13 Dose: 15 units Documented by: [id number] Cosigned by: [id number] Insulin Human Regular (Novolin-R Insulin Per Unit Charge) 10 units IV NOW [facility] [[email or web address]] Stop: 04/02/20 18:29 Last Admin: 04/02/20 18:37 Dose: 10 units Documented by: [id number] Cosigned by: [id number] Lisinopril (Lisinopril 40 Mg Tab) 40 mg PO DAILY [facility] Stop: 05/03/20 08:59 Last Admin: 04/04/20 09:00 Dose: 40 mg Documented by: [id number] Admin: 04/03/20 08:20 Dose: 40 mg Documented by: [id number] Metformin HCl (Metformin Hcl 500 Mg Tab) 500 mg PO BIDM [facility] Stop: 05/04/20 07:59 Last Admin: 04/04/20 17:13 Dose: 500 mg Documented by: [id number] Admin: 04/04/20 09:03 Dose: 500 mg Documented by: [id number] Miscellaneous (Moderate Stress Level ) 1 ea N/A ONE ONE Stop: 04/02/20 19:43 Last Admin: 04/02/20 22:04 Dose: Not Given Documented by: [id number] Miscellaneous (Remove Nicoderm Patch) 1 ea N/A DAILY@0859 [facility] Stop: 05/04/20 08:58 Last Admin: 04/04/20 09:01 Dose: 1 ea Documented by: [id number] Miscellaneous Information (Pharmacy Glycemic Mgmt Consult) 1 ea N/A NOW STA; Protocol Stop: 04/02/20 19:24 Last Admin: 04/02/20 22:04 Dose: Not Given Documented by: [id number] Nicotine (Nicotine 21 Mg/24 Hr Tdsy) 21 mg TD QAM [facility] Stop: 05/03/20 13:59 Last Admin: 04/04/20 09:03 Dose: 21 mg Documented by: [id number] Admin: 04/03/20 16:58 Dose: 21 mg Documented by: [id number] Potassium Chloride (Potassium Chloride Crtab 20 Meq Tabcr) 40 meq PO NOW STA Stop: 04/02/20 18:27 Last Admin: 04/02/20 18:38 Dose: 40 meq Documented by: [id number] Potassium Chloride (Potassium Chloride Crtab 20 Meq Tabcr) 20 meq PO NOW STA Stop: 04/03/20 01:55 Last Admin: 04/03/20 02:25 Dose: 20 meq Documented by: [id number] Potassium Chloride (Potassium Chloride Crtab 20 Meq Tabcr) 40 meq PO ONE ONE Stop: 04/03/20 07:16 Last Admin: 04/03/20 08:16 Dose: 40 meq Documented by: [id number] Vitamin D (Cholecalciferol 1,000 Units 25 Mcg Tab) 1,000 units PO DAILY [facility] Stop: 05/03/20 08:59 Last Admin: 04/04/20 09:01 Dose: 1,000 units Documented by: [id number] Admin: 04/03/20 08:20 Dose: 1,000 units Documented by: [id number] Discharge Plan Visit Data Chief Complaint: Hyperglycemia Stated Complaint: HIGH BP, HIGH BLOOD SUGAR ED Provider: Savita Carrasquillo Discharge Problem: Hyperglycemia due to diabetes mellitus, Obesity, Diabetes mellitus, new onset Patient Disposition: Admitted As Inpatient Condition: Good Discharge Instructions Interventions: ED Discharge Assessment Last Done: 04/02/20 21:33 Discharge Problem: Obesity Qualifiers: Obesity type: due to excess calories Obesity classification: adult class 2 (BMI 35 - 39.9) Serious obesity comorbidity presence: with serious comorbidity Body mass index: BMI 38.0-38.9 Qualified Code(s): E66.01 - Morbid (severe) obesity due to excess calories
[2020-04-02] MEDS ORDERED: GLUCOSE 40% GEL 15 GM TUBE PO PRN (22:03)
[2020-04-02] MEDS ORDERED: ACETAMINOPHEN 325 MG TAB PO PRN (22:03)
[2020-04-02] MEDS ORDERED: CARBOHYDRATES FOR HYPOGLYCEMIA PO PRN (22:03)
[2020-04-02] MEDS ORDERED: DEXTROSE 50% 50 ML SYRINGE IV PRN (22:03)
[2020-04-02] MEDS ORDERED: GLUCAGON FOR INJ 1 MG VIAL SQ PRN (22:03)
[2020-04-02] MEDS ORDERED: MAGNESIUM HYDROXIDE SUSP 30 ML UDC PO PRN (22:03)
[2020-04-02] MEDS ORDERED: POLYETHYLENE (MIRALAX) 17 GM PACK PO PRN (22:03)
[2020-04-02] MEDS ORDERED: ONDANSETRON INJ 2 MG/ML 2 ML VIAL IV PRN (22:03)
[2020-04-02] MEDS ORDERED: GLUCOSE 10 TABS/TUBE PO PRN (22:03)
[2020-04-02] MEDS ORDERED: INSULIN GLARGINE SOLOSTAR 100 UNITS/ML 3 ML PEN SC ONE (22:03)
[2020-04-02] MEDS ORDERED: ALUMINUM/MAGNESIUM SUSP 30 ML UDC PO PRN (22:03)
[2020-04-02 22:11] LABS: Potassium 3.4 mmol/L (3.5-5.1)
[2020-04-02 22:18] LABS: Beta-Hydroxybutyrate 5.62 mg/dl (0.2-2.81)
[2020-04-02] MEDS: INSULIN ASPART 100 UNITS/ML 3 ML PEN SC SCH (22:45)
[2020-04-03] MEDS ORDERED: POTASSIUM CHLORIDE CRTAB 20 MEQ TABCR PO STA (01:54)
[2020-04-03 02:20] LABS: Basophils # (auto) 0.04 K/uL (0-0.2); Basophils % (auto) 0.5 %; Eosinophils # (auto) 0.25 K/uL (0-0.5); Eosinophils % (auto) 3.1 %; Hemoglobin 15.2 g/dL (14.0-18.0); Immature Granulocytes # (auto) 0.07 K/uL (0.00-0.02); Immature Granulocytes % (auto) 0.9 %; Lymphocytes # (auto) 2.65 K/uL (1.2-3.4); Lymphocytes % (auto) 32.5 %; Mean Corpuscular Hemoglobin 28.8 pg (25-34); Mean Corpuscular Hgb Conc 36.2 g/dL (32-36); Mean Corpuscular Volume 79.5 fL (80-100); Mean Platelet Volume 10.3 fL (7.4-10.4); Monocytes # (auto) 0.49 K/uL (0.11-0.59); Neutrophils # (auto) 4.66 K/uL (1.4-6.5); Platelet Count 220 K/uL (130-400); RDW Coefficient of Variation 13.1 % (11.5-14.5); RDW Standard Deviation 37.4 fL (36.4-46.3); Red Blood Count 5.28 M/uL (4.7-6.1); White Blood Count 8.16 K/uL (4.8-10.8)
[2020-04-03] MEDS: D5W AND 1/2NSS + 20MEQ KCL 20 MEQ/1,000 ML BAG IV SCH ×2 (02:25→08:16)
[2020-04-03 02:43] LABS: Albumin Level 3.8 gm/dl (3.4-5.0); BUN Creatinine Ratio 12.8 (10-20); Calcium 8.6 mg/dl (8.5-10.1); Creatinine Clr Calc Pharmacy 135.8 ml/min; Est GFR (African American) 113.7; Est GFR (Non-African American) 98.1; Magnesium 2.1 mg/dl (1.8-2.4); Potassium 3.2 mmol/L (3.5-5.1)
[2020-04-03 02:44] LABS: BUN Creatinine Ratio 13.5 (10-20); Calcium 8.5 mg/dl (8.5-10.1); Est GFR (Non-African American) 101.9; Potassium 3.1 mmol/L (3.5-5.1)
[2020-04-03 02:47] LABS: Albumin Globulin Ratio 1.2 (0.9-2); Bilirubin,Total 1.4 mg/dl (0.2-1); Globulin 3.1 gm/dl (2.5-4.0); Total Protein 6.9 gm/dl (6.4-8.2)
[2020-04-03 06:34] LABS: Estimated Average Glucose 286 mg/dl; Hemoglobin A1C 11.6 % (4.5-5.6)
[2020-04-03] MEDS ORDERED: POTASSIUM CHLORIDE CRTAB 20 MEQ TABCR PO ONE (07:15)
[2020-04-03] MEDS ORDERED: INSULIN GLARGINE SOLOSTAR 100 UNITS/ML 3 ML PEN SC ONE (08:00)
[2020-04-03] MEDS: INSULIN ASPART 100 UNITS/ML 3 ML PEN SC SCH ×4 (08:18→21:37)
[2020-04-03] MEDS: hydroCHLOROthiazide 25 MG TAB PO SCH (08:19)
[2020-04-03] MEDS: CHOLECALCIFEROL 1,000 UNITS 25 MCG TAB PO SCH (08:20)
[2020-04-03] MEDS: OMEGA-3 (PURIFIED FISH OIL) 1 GM CAP PO SCH (08:20)
[2020-04-03] MEDS: lisinopril 40 MG TAB PO SCH (08:20)
--- NOTE | 2020-04-03 09:11 | Hospitalist Progress Note ---
Date of Service April 03, 2020 Assessment & Plan (1) Hyperglycemia due to diabetes mellitus: Insulin drip with IVF overnight-resuscitated. Currently euglycemic and on basal bolus insulin. Will continue this for now and assess how much basal insulin is reasonable to send him home on in addition with metformin 500mg BID. Close PCP follow-up in next couple of weeks. (2) HTN (hypertension): BP at goal, cont lisinopril and hydrochlorothiazide per home regimen. (3) HLD (hyperlipidemia): Currently not on any lipid-lowering medication. Elevated triglycerides. Would defer starting medication until this can be repeated with PCP as outpatient and patient can be counseled further about lifestyle modifications. (4) Obesity: BMI 38.9; encouraged weight loss and lifestyle modifications (5) Tobacco abuse: smokeless tobacco encourage cessation (6) Hepatic steatosis: Again encourage decrease in percent body fat through diet and lifestyle changes and monitor this closely with us imaging and LFTs as outpatient. (7) DVT prophylaxis: SCDs/ambulation Full Code Dispo-transfer to med/surg. Likely dc to home in am. Dacia Nava DO [facility] Hospitalist Admission and Anticipated Discharge Date Admission Date: April 02, 2020 Subjective 39 yo M presented to the ER with excessive thirst and urination, new onset diabetic with hyperglycemia. -aside from a headache from not eating all night he reports feeling better today -blood glucose is improved. -patient denies infectious symptoms and no chest pain, SOB -mom is diabetic and on metformin-we discussed this as a possible treatment option -we discussed the importance of efforts to decrease percent body fat-we discussed utilizing a program to hold him accountable no matter which one. Review of Systems Review of Systems: All systems reviewed & are unremarkable except as noted in Subjective Physical Exam Physical Exam: CONSTITUTIONAL: obese, vitals as above, generally well- appearing EYES: normal conjunctivae, no scleral icterus ENT: external ear and nose normal, MMM RESPIRATORY: clear to auscultation bilaterally, no crackles, rales or wheezes, normal respiratory effort CARDIOVASCULAR: regular rate and rhythm, S1 and 2 heard without murmurs, gallops or rubs, no JVD, no peripheral edema GASTROINTESTINAL: normal bowel sounds, soft, nontender, nondistended MUSCULOSKELETAL: strength 5/5 throughout, head is normocephalic and atraumatic SKIN: warm and dry NEUROLOGIC: CN 2-12 grossly intact, no sensory deficit, normal cognition, normal speech, no tremor, no gross focal deficits. PSYCHIATRIC: alert cooperative and oriented to person, place and time. Results & Data Results & Data ([facility]) Vital Signs (Past 12 Hours) Vital Signs Temp Pulse Pulse Resp BP BP Pulse Ox 04/03/20 07:12 36.8 C 68 20 142/82 H 98 04/03/20 04:05 36.7 C 70 18 120/74 97 04/03/20 00:00 85 04/02/20 23:11 36.8 C 78 18 145/76 H 94 04/02/20 22:17 36.8 C 86 18 157/77 H 97 04/02/20 21:19 75 17 137/76 94 Laboratory Results Short CBC 04/02/20 04/03/20 Range/Units 17:11 02:08 WBC 9.42 8.16 (4.8-10.8) K/uL Hgb 17.0 15.2 (14.0-18.0) g/dL Hct 46.0 42.0 (42-52) % Plt Count 223 220 (130-400) K/uL BMP 04/02/20 04/02/20 04/02/20 17:11 19:46 21:17 Sodium 127 L 133 L Potassium 3.6 Cancelled Chloride 91 L 98 Carbon Dioxide 22 28 BUN 19 H 16 Creatinine 1.34 1.15 Glucose 694 H* 382 H* Calcium 9.9 8.7 04/02/20 04/03/20 04/03/20 21:49 02:08 02:08 Sodium 137 137 Potassium 3.4 L 3.1 L 3.2 L Chloride 103 103 Carbon Dioxide 30 30 BUN 13 12 Creatinine 0.95 0.98 Glucose 156 H 153 H Calcium 8.5 8.6 Cardiac Enzymes 04/02/20 Range/Units 17:11 Troponin I < 0.015 (0-0.045) ng/ml Liver Function 04/02/20 04/03/20 Range/Units 17:11 02:08 Total Bilirubin 1.6 H 1.4 H (0.2-1) mg/dl AST 27 19 (15-37) U/L ALT 79 H 63 (12-78) U/L Alkaline Phosphatase 115 92 (45-117) U/L Albumin 4.3 3.8 (3.4-5.0) gm/dl Urine 04/02/20 Range/Units 17:20 Urine Color Yellow Urine Appearance Clear (Clear) Urine pH 5.0 (4.5-7.5) Ur Specific [place] 1.035 H (1.000-1.030) Urine Protein Negative (Negative) Urine Glucose (UA) 3+ H (Negative) Diagnostic Findings [facility], [id number] XRay Report Patient: CANDI SCHMID Date: 04/02/20MR#: [id number]: Acct ID:[id number]: Date: 1980City Zip: Age: 39Location: EDSex: MRoom/Bed:Att Phy:Diagnosis: HIGH BP, HIGH BLOOD SUGARPri Phy: PCP,NOService Date: 04/02/20Fam Phy:Interpreting Phy: Curtis WoodardAdmit Phy: Ordering Phy: Savita Carrasquillo M.D. cc: ~ XR chest 1V portable HISTORY: 39 years-old Male weakness acute weakness COMPARISON: None TECHNIQUE: Portable upright AP view of the chest FINDINGS: Cardiomediastinal and hilar silhouettes are within normal limits. No pneumothorax, pleural effusion, airspace consolidation or overt pulmonary edema. Bones of the chest appear grossly intact. IMPRESSION: No acute process. ACT 112: Negative or not required by law. The above report was generated using voice recognition software. It may contain grammatical, syntax or spelling errors. Electronically signed by: Kristopher Woodard M.D. 04/02/2020 5:11 PM Dictated: 04/02/201709Transcribed: 04/02/201709 Medications Administered Current Inpatient Medications Acetaminophen (Acetaminophen 325 Mg Tab) 650 mg PO Q4H PRN PRN Reason: Pain or Fever Stop: 05/02/20 22:02 Last Admin: 04/03/20 01:58 Dose: 650 mg Documented by: Al Hydrox/Mg Hydrox/Simethicone (Aluminum/Magnesium Susp 30 Ml Udc) 15 ml PO Q4H PRN PRN Reason: Dyspepsia Stop: 05/02/20 22:02 Dextrose (Dextrose 50% 50 Ml Syringe) 25 - 50 ml IV UD PRN; Protocol PRN Reason: Hypoglycemia Protocol Stop: 05/02/20 22:02 Fish Oil ([place]-3 (Purified Fish Oil) 1 Gm Cap) 1 gm PO DAILY [facility] Stop: 05/03/20 08:59 Last Admin: 04/03/20 08:20 Dose: 1 gm Documented by: [id number] (Glucagon For Inj 1 Mg Vial) 1 mg SQ UD PRN; Protocol PRN Reason: Hypoglycemia Protocol Stop: 05/02/20 22:02 Glucose (Glucose 10 Tabs/Tube) 4 - 8 tabs PO UD PRN; Protocol PRN Reason: Hypoglycemia Protocol Stop: 05/02/20 22:02 Glucose (Glucose 40% Gel 15 Gm Tube) 15 - 30 gm PO UD PRN; Protocol PRN Reason: Hypoglycemia Protocol Stop: 05/02/20 22:02 Hydrochlorothiazide (Hydrochlorothiazide 25 Mg Tab) 50 mg PO DAILY [facility] Stop: 05/03/20 08:59 Last Admin: 04/03/20 08:19 Dose: 50 mg Documented by: Insulin Aspart (Insulin Aspart 100 Units/Ml 3 Ml Pen) 0 units SC ACHS [facility] Stop: 05/02/20 20:59 Last Admin: 04/03/20 08:18 Dose: 10 units Documented by: Lisinopril (Lisinopril 40 Mg Tab) 40 mg PO DAILY [facility] Stop: 05/03/20 08:59 Last Admin: 04/03/20 08:20 Dose: 40 mg Documented by: Magnesium Hydroxide (Magnesium Hydroxide Susp 30 Ml Udc) 30 ml PO Q12H PRN PRN Reason: Constipation Stop: 05/02/20 22:02 Miscellaneous (Carbohydrates For Hypoglycemia ) 15 - 30 gm PO UD PRN PRN Reason: Hypoglycemia Protocol Stop: 05/02/20 22:02 Ondansetron HCl (Ondansetron Inj 2 Mg/Ml 2 Ml Vial) 4 mg IV Q6H PRN PRN Reason: Nausea Stop: 05/02/20 22:02 Polyethylene Glycol (Polyethylene (Miralax) 17 Gm Pack) 17 gm PO DAILY PRN PRN Reason: Constipation Stop: 05/02/20 22:02 Vitamin D (Cholecalciferol 1,000 Units 25 Mcg Tab) 1,000 units PO DAILY [facility] Stop: 05/03/20 08:59 Last Admin: 04/03/20 08:20 Dose: 1,000 units Documented by: (1) Obesity Body mass index: BMI 38.0-38.9 Obesity classification: adult class 2 (BMI 35 - 39.9) Obesity type: due to excess calories Serious obesity comorbidity presence: with serious comorbidity Qualified Code(s): E66.01 - Morbid (severe) obesity due to excess calories; Z68.38 - Body mass index [BMI] 38.0-38.9, adult
[2020-04-03] MEDS ORDERED: CARBOHYDRATES FOR HYPOGLYCEMIA PO PRN (09:29)
[2020-04-03] MEDS ORDERED: GLUCOSE 10 TABS/TUBE PO PRN (09:29)
[2020-04-03] MEDS ORDERED: DEXTROSE 50% 50 ML SYRINGE IV PRN (09:29)
[2020-04-03] MEDS ORDERED: IBUPROFEN 600 MG TAB PO STA (09:29)
[2020-04-03] MEDS ORDERED: GLUCAGON FOR INJ 1 MG VIAL SQ PRN (09:29)
[2020-04-03] MEDS ORDERED: GLUCOSE 40% GEL 15 GM TUBE PO PRN (09:29)
[2020-04-03 14:31] LABS: BUN Creatinine Ratio 9.1 (10-20); Calcium 9.3 mg/dl (8.5-10.1); Creatinine Clr Calc Pharmacy 126.8 ml/min; Est GFR (African American) 104.6; Est GFR (Non-African American) 90.2; Potassium 3.7 mmol/L (3.5-5.1)
[2020-04-03] MEDS: NICOTINE 21 MG/24 HR TDSY TD SCH (16:58)
[2020-04-03] MEDS: INSULIN GLARGINE SOLOSTAR 100 UNITS/ML 3 ML PEN SC SCH (21:37)
--- NOTE | 2020-04-04 07:00 | Electrocardiogram Report ---
Test Reason : Blood Pressure : / mmHG Vent. Rate : 100 BPM Atrial Rate : 100 BPM P-R Int : 156 ms QRS Dur : 092 ms QT Int : 358 ms P-R-T Axes : 042 017 023 degrees QTc Int : 461 ms Poor data quality, interpretation may be adversely affected Normal sinus rhythm Cannot rule out Inferior infarct , age undetermined Abnormal ECG No previous ECGs available Confirmed by Dakota Castaneda ([id number]) on 04/04/2020 7:00:08 AM Referred By: REFERRED SELF Confirmed By:Dakota Castaneda
[2020-04-04 08:37] LABS: BUN Creatinine Ratio 11.6 (10-20); Calcium 9.4 mg/dl (8.5-10.1); Creatinine Clr Calc Pharmacy 143.1 ml/min; Est GFR (African American) 121.1; Est GFR (Non-African American) 104.5; Potassium 3.6 mmol/L (3.5-5.1)
[2020-04-04] MEDS: INSULIN ASPART 100 UNITS/ML 3 ML PEN SC SCH ×2 (08:56→12:35)
[2020-04-04] MEDS: OMEGA-3 (PURIFIED FISH OIL) 1 GM CAP PO SCH (09:00)
[2020-04-04] MEDS: lisinopril 40 MG TAB PO SCH (09:00)
[2020-04-04] MEDS: CHOLECALCIFEROL 1,000 UNITS 25 MCG TAB PO SCH (09:01)
[2020-04-04] MEDS: INSULIN GLARGINE SOLOSTAR 100 UNITS/ML 3 ML PEN SC SCH (09:01)
[2020-04-04] MEDS: hydroCHLOROthiazide 25 MG TAB PO SCH (09:01)
[2020-04-04] MEDS: NICOTINE 21 MG/24 HR TDSY TD SCH (09:03)
[2020-04-04] MEDS: metFORMIN HCL 500 MG TAB PO SCH ×2 (09:03→17:13)
--- NOTE | 2020-04-04 14:04 | Discharge Summary ---
Date of Service April 04, 2020 Admission HPI Per Admitting Provider This is a 39 M who has a significant PMH HTN, HLD, elevated LFT, obesity, and smokeless tobacco use who presents to ED 2/2 to overall feeling ill for the past 5 days. C/o polyuria, polydipsia, dizziness and dry mouth. 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 Over past few days he was researching symptoms and sounded like diabetes. He asked nurses to check glucose and it was over 600. He was referred to ED. He denies recent illness, f/c/s, syncope, chest pain, sob, cough, URI sx, hemoptysis, n/v/d, abdominal pain, dysuria, melena or hematochezia. His PCP was Dr. Manzano and he is not happy with his care there. Was last seen a few weeks ago and he was concerned about his blood pressure and losing weight. He felt his concerns weren't heard. Today in ED his bsg was 694 but no overt acidosis. Mild ketones in urine and elevation of beta hydroxybutyric acid of 6.78. He received 2 L of IV fluid in ED along with 10 units of IV regular insulin. BSG went from 694- 423. Admission Exam Per Admitting Provider Constitutional: WD/WN, vitals as above, NAD, sitting up in bed, pleasant, conversing easily Head: Normocephalic, Atraumatic Eyes: PERRL, conjunctivae normal, anicteric sclerae ENMT: external ear and nose normal, oropharynx normal Neck: trachea midline, no thyromegaly normal visual inspection Respiratory: normal respiratory effort, lungs clear to auscultation, no wheeze, rales, rhonchi. Normal insp/exp effort, no accessory muscle use Cardiovascular: RRR, no murmur, no edema Vessels: no JVD or carotid bruit Chest: normal inspection of chest Abdomen: normal bowel sounds, soft, nontender, no hepatosplenomegaly Musculoskeletal: no cyanosis or clubbing, extremities motor strength 5/5 Skin: no rashes, warm and dry normal turgor Neurologic: PERRL, EOMI, accommodation nl, no face palsy, no dysarthria CN's II-XI intact bilaterally and moves all extremities Psychiatric: A+Ox3, euthymic affect : deferred Principal Diagnosis Diabetic ketoacidosis 2/2 new onset DMII Hypertriglyceridemia Tobacco use Hepatic Steatosis (fatty liver) Morbid obesity Discharge Exam CONSTITUTIONAL: obese, vitals as above, generally well-appearing EYES: normal conjunctivae, no scleral icterus ENT: external ear and nose normal, MMM RESPIRATORY: clear to auscultation bilaterally, no crackles, rales or wheezes, normal respiratory effort CARDIOVASCULAR: regular rate and rhythm, S1 and 2 heard without murmurs, gallops or rubs, no JVD, no peripheral edema GASTROINTESTINAL: normal bowel sounds, soft, nontender, nondistended MUSCULOSKELETAL: strength 5/5 throughout, head is normocephalic and atraumatic SKIN: warm and dry NEUROLOGIC: CN 2-12 grossly intact, no sensory deficit, normal cognition, normal speech, no tremor, no gross focal deficits. PSYCHIATRIC: alert cooperative and oriented to person, place and time. Discharge Data Allergies Allergy/AdvReac Type Severity Reaction Status Date / Time amoxicillin [From Augmentin] Allergy Rash Verified 04/02/20 17:27 clavulanic acid Allergy Rash Verified 04/02/20 17:27 [From Augmentin] Penicillins Allergy diarrhea, Verified 04/02/20 17:26 fever, hives Consultations 04/02/20 18:38 ED Decision to Admit Stat 04/02/20 22:03 Consult Case Management - Discharge Planning Routine Ordered Studies [facility], [id number] XRay Report Patient: CANDI SCHMID Date: 04/02/20#: [id number]: Acct ID:[id number]: [facility] Age: 39Location: EDSex: MRoom/Bed:Att Phy:Diagnosis: HIGH BP, HIGH BLOOD SUGARPri Phy: PCP,NOService Date: 04/02/20Fam Phy:Interpreting Phy: Curtis WoodardAdmit Phy: Ordering Phy: Savita Carrasquillo M.D. cc: ~ XR chest 1V portable HISTORY: 39 years-old Male weakness acute weakness COMPARISON: None TECHNIQUE: Portable upright AP view of the chest FINDINGS: Cardiomediastinal and hilar silhouettes are within normal limits. No pneumothorax, pleural effusion, airspace consolidation or overt pulmonary edema. Bones of the chest appear grossly intact. IMPRESSION: No acute process. ACT 112: Negative or not required by law. The above report was generated using voice recognition software. It may contain grammatical, syntax or spelling errors. Electronically signed by: Kristopher Woodard M.D. 04/02/2020 5:11 PM Dictated: 04/02/201709Transcribed: 04/02/201709 Diabetes Follow up Diabetes Follow-up Needed for HgbA1c >9%,Newly Diagnosed Diabetes Hospital Course (1) DKA (diabetic ketoacidoses): (2) Diabetes mellitus, new onset: (3) HTN (hypertension): (4) HLD (hyperlipidemia): (5) Obesity: (6) Tobacco abuse: (7) Hepatic steatosis: Patient is a 39-year-old man with new onset diabetes who presented with hyperglycemia and diabetic ketoacidosis. He was placed on an insulin drip and given IV fluid resuscitation with correction of the acidosis. Weight loss and lifestyle modifications were encouraged including decreased percent body fat and increased lean muscle mass in the setting of obesity with a BMI of 39. The patient verbalized a commitment to this. He was started on Metformin just prior to discharge and sent home on this in addition to once daily Lantus to be adjusted by his primary care doctor within 1 to 2 weeks of discharge. He was also found to have elevated triglycerides to 802. As this was found in the setting of critical illness, a repeat check is recommended as outpatient. Smokeless tobacco use was discouraged. Nicotine supplementation was provided at discharge. At time of discharge she was mentating and ambulating at baseline and tolerating p.o. He was hemodynamically stable and afebrile and oxygenating well on room air. He was sent home in stable condition with close primary care follow-up recommended. Hemoglobin A1c was 11.6 on 04/03 with repeat check recommended in 3 months time. Total Time Total Time Spent Total Time Spent (In Minutes): 60 Total Time Includes: Examination of the Patient, Discharge Planning, Medication Reconciliation and Communication With Other Providers Discharge Plan Discharge Items Patient Disposition: Home - Self-Care Reason For Visit: HYPERGLYCEMIA, MILD DKA Discharge Diagnosis: Diabetic ketoacidosis 2/2 new onset DMII Hypertriglyceridemia Tobacco use Hepatic Steatosis (fatty liver) Morbid obesity Condition on Discharge: Good Activity: Resume your previous activity Lifting: Gradually increase as tolerated Non-emergency contact: Primary Care Provider Call non-emergency contact if: you have any medication questions, your symptoms worsen, your pain is not controlled, your pain is worsening, your pain is unusual for you, your pain is concerning for you and you have a fever Follow-up/Referrals: Emiliano Manzano MD [Outside Practitioners] - (Date & Time 04/07/2020 12:00 PM Provider Emiliano Manzano MD Department [facility] ) Diet: Carb Consistent or DM2 Addtl Attending Provider Instructions: Please take all medications as instructed on discharge list below. You will need to inject yourself under the skin with 30 units of Basaglar every night prior to sleep. Please check your fasting blood sugar every morning when you wake up. Please keep a log of these numbers and bring these readings to your next doctor's appointment. They will use this information to adjust your insulin dosing up or down. Please follow-up with your primary care provider at the date and time above. It is strongly recommended that you institute lifestyle changes including diet and exercise that will help you increase lean muscle mass and decrease percent body fat overall. This will help you combat diabetes. Additionally, your primary care provider will refer you for annual eye and foot screenings for diabetic preventive monitoring. You were found to have fat in your liver, which is a condition called hepatic steatosis. If left unchecked, this can eventually progress to cirrhosis. Lifestyle changes including decreasing percent body fat will also help with this. Periodic screening ultrasounds of your liver and bloodwork to monitor transaminases may be ordered through your primary care provider. It is strongly recommended that you quit using tobacco altogether as this is very bad for your health. Please continue to work with your primary care provider regarding efforts to stay quit. Your triglycerides were found to be very elevated here, which can increase your risk for heart disease. As this was checked when you were critically ill, it is recommended this be rechecked with fasting labwork sometime within the next few weeks. Your primary care provider may ordered fasting labwork to check this and guide you on the need for medical therapy based on the results. Again, generally, the lifestyle changes recommended above will improve this with time. It was a pleasure taking care of you! Please call if you have any questions or problems. You can reach a [facility] hospitalist on duty at [facility] 24 hours a day by calling [phone]. Take care of yourself. Dacia Nava DO [facility] Hospitalist Addtl Financial Accounting Manager Provider Instructions: DIABETES - Check your blood sugar at least 2x/day - fasting/before lunch and before bed - Also check anytime you are feeling funny Basaglar - Basaglar is a long-acting/24 hour insulin - It helps cover the sugar your body makes - Try to take your Basaglar at the same time every day - You do not need to take Basaglar with food Metformin - Metformin helps to decrease the amount of sugar released by your liver - Metformin helps your cells be more sensitive to the insulin, which means it helps to make the job of insulin easier - You want to take the Metformin with food to help minimize any GI side effects - Dietary changes- more protein/vegetables and less carbohdyrates/starches (potatoes, breads, pastas, snack foods); try to limit/avoid sugar-sweetened drinks Pending Studies at Discharge: No Stand-Alone Forms: My [facility] Medications and DC Order Prescriptions: New nicotine [Nicoderm CQ] 21 mg/24 hr Patch 24 Hour 21 mg transdermal QAM Qty: 14 RF: 1 metformin 500 mg Tablet 500 mg PO BIDM Qty: 60 RF: 0 Basaglar KwikPen U-100 Insulin 100 unit/mL (3 mL) insulin pen 30 unit subcut PM Qty: 15 RF: 0 (DME) pen needle, diabetic 32 gauge x 5/32" needle See Rx Instructions .ROUTE .MEDSUPPLY Qty: 50 RF: 2 (DME) OneTouch Verio test strips Strip See Rx Instructions .ROUTE .MEDSUPPLY Qty: 100 RF: 2 (DME) lancets [OneTouch Delica Lancets] 33 gauge misc See Rx Instructions .ROUTE .MEDSUPPLY Qty: 100 RF: 2 Continued hydrochlorothiazide 50 mg Tablet 50 mg PO DAILY RF: 0 lisinopril 40 mg Tablet 40 mg PO DAILY RF: 0 omega-3 fatty acids Capsule 1,000 mg PO DAILY RF: 0 cholecalciferol (vitamin D3) [Vitamin D3] 25 mcg (1,000 unit) Tablet 25 mcg PO DAILY RF: 0 acetaminophen [Tylenol Extra Strength] 500 mg Tablet 1,000 mg PO Q6H PRN (Reason: Pain) RF: 0 Discharge Orders: Discharge Order (Routine); Ordered 04/04/20 Ordered By: Dacia Nava Admission Data Admit Date/Time: 04/03/20 08:59 Attending Provider: Dacia Nava Admit Provider: Mone Allen I. Primary Care Provider: PCP,NO Other Providers: Mone Allen I. Other Interventions: Discharge Summary Assessment (RN) Last Done: 04/04/20 16:25
[2020-04-04] MEDS ORDERED: INSULIN GLARGINE SOLOSTAR 100 UNITS/ML 3 ML PEN SC ONE (16:49)
== END 2020-04-04 17:17 | disposition home or self-care (01) | DRG 639 ==
LOC: ED 16:25 → 2S 16:25 → SUATTDRO 18:45 → 2S 21:30 → 3N 04-03 09:02 → 3W 04-03 21:24